=== PATIENT | female | born 2000 | race African-American/Black ===

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

== ENCOUNTER 2019-05-31 21:20 | Emergency (ER) | payer OTHER ==
[~2019-05-31] VITALS: Ht 162.6 cm; Wt 63.0 kg
[~2019-05-31 21:20] MED LIST changes: +ORPH-16 PO
[2019-05-31 22:20] LABS: BILIRUBIN,URINE NEG (NEG); CLARITY,URINE CLOUDY; COLOR,URINE YELLOW; GLUCOSE,URINE NEG (NEG)
[2019-05-31 22:21] LABS: AMORPHOUS SEDIMENT,UR PRESENT /HPF; BACTERIA,URINE FEW /HPF (0-FEW); NITRITE,URINE NEG (NEG); UROBILINOGEN,URINE 1 mg/dL (0.2 mg/dL)
[2019-05-31 22:22] LABS: SQUAMOUS EPITHELIAL CELL,UR MOD /LPF
[2019-05-31] MEDS ORDERED: SULF1TAB24 PO (22:39)
[2019-05-31] MEDS ORDERED: METR500T PO (22:39)
[2019-05-31 22:47] VITALS: BP 153/76
--- NOTE | 2019-05-31 22:54 | PHYS DOC ---
Past History Past Medical History: No Pertinent History Past Surgical History: No Surgical History Smoking: Less than 1pk/day Alcohol Use: None Drug Use: None Adult General Chief Complaint Chief Complaint: ABDOMINAL PAIN HPI HPI Patient is a 18-year-old female with 3 days of lower abdominal cramping and vaginal discharge some occasional dysuria no fever no vomiting she is not due for her. If she just wants to get checked out she does not want a labs I offered them she declined "I don't want to be her all night" Review of Systems Review of Systems Constitutional: Denies fever or chills [] Eyes: Denies change in visual acuity, redness, or eye pain [] Cardiovascular: No additional information not addressed in HPI [] GI: Musculoskeletal: Denies back pain or joint pain [] Integument: Denies rash or skin lesions [] Neurologic: Denies headache, focal weakness or sensory changes [] Endocrine: Denies polyuria or polydipsia [] All other systems were reviewed and found to be within normal limits, except as documented in this note. Current Medications Current Medications Current Medications Medications (Trade) Dose Ordered Sig/Woodrow Start Time Stop Time Status Last Admin Dose Admin Azithromycin (Zithromax) 1,000 mg 1X ONCE 05/31/19 23:00 05/31/19 23:01 05/31/19 22:44 1,000 MG Ceftriaxone Sodium (Rocephin Im) 250 mg 1X ONCE 05/31/19 23:00 05/31/19 23:01 05/31/19 22:44 250 MG Allergies Allergies Allergies Coded Allergies Type Severity Reaction Last Updated Verified morphine Allergy Intermediate 04/12/18 Yes Physical Exam Physical Exam Constitutional: Well developed, well nourished, no acute distress, non-toxic appearance. [] HENT: Normocephalic, atraumatic, bilateral external ears normal, oropharynx moist, no oral exudates, nose normal. [] Eyes: PERRLA, EOMI, conjunctiva normal, no discharge. [] Neck: Normal range of motion, no tenderness, supple, no stridor. [] Pulmonary: Normal respiratory effort no increased work of breathing no obvious chest wall trauma Abdomen: Bowel sounds normal, soft, no tenderness, no masses, no pulsatile masses. [] gu negative cervical motion or adnexal tenderness mild to moderate vaginal discharge with this somewhat excoriated cervix Skin: Warm, dry, no erythema, no rash. [] Back: No tenderness, no CVA tenderness. [] Extremities: No tenderness, no cyanosis, no clubbing, ROM intact, no edema. [] Neurologic: Alert and oriented X 3, normal motor function, normal sensory function, no focal deficits noted. [] Psychologic: Affect normal, judgement normal, mood normal. [] Current Patient Data Vital Signs Vital Signs Date Time Temp Pulse Resp B/P (MAP) Pulse Ox O2 Delivery O2 Flow Rate FiO2 05/31/19 21:25 98.4 91 14 100 Room Air Lab Results Laboratory Tests Test 05/31/19 21:27 05/31/19 21:39 Urine Collection Type Unknown Urine Color Yellow Urine Clarity Cloudy Urine pH 7.0 Urine Specific [place] 1.025 Urine Protein 100 mg/dl (NEG-TRACE) Urine Glucose (UA) Neg mg/dL (NEG) Urine Ketones (Stick) Neg mg/dL (NEG) Urine Blood Mod (NEG) Urine Nitrite Neg (NEG) Urine Bilirubin Neg (NEG) Urine Urobilinogen Dipstick 1 mg/dL (0.2 mg/dL) Urine Leukocyte Esterase Mod (NEG) Urine RBC 6-10 /HPF (0-2) Urine WBC 11-20 /HPF (0-4) Urine Squamous Epithelial Cells Mod /LPF Urine Amorphous Sediment Present /HPF Urine Bacteria Few /HPF (0-FEW) POC Urine HCG, Qualitative hcg negative (Negative) Microbiology 05/31/19 Wet Prep - Preliminary, Resulted EKG EKG [] Radiology/Procedures Radiology/Procedures [] Course & Med Decision Making Course & Med Decision Making Pertinent Labs and Imaging studies reviewed. (See chart for details) []Vaginitis treatment provided GC chlamydia pending she was treated presumptively in the emergency room prescription for UTI and BV treatment was provided return precautions discussed and she voiced understanding c clinical history and examination is really not consistent with pelvic inflammatory disease acute ovarian pathology or GI related pathology there is no right lower quadrant tenderness specifically Dragon Disclaimer Dragon Disclaimer This electronic medical record was generated, in whole or in part, using a voice recognition dictation system. Departure Departure: Impression: Primary Impression: Urinary tract infection Additional Impression: Bacterial vaginosis Disposition: 01 HOME, SELF-CARE Condition: STABLE Patient Instructions: Bacterial Vaginosis, [id number] Scripts Sulfamethoxazole/Trimethoprim (BACTRIM DS TABLET) 1 Each Tablet 1 TAB PO BID for uti for 7 Days, #14 TAB 0 Refills Prov: QUITA LOMBARDI MD 05/31/19 Metronidazole (FLAGYL) 500 Mg Tablet 1 TAB PO BID for bacteral vaginosis, #14 TAB Prov: QUITA LOMBARDI MD 05/31/19 Problem Qualifiers QUITA LOMBARDI MD May 31, 2019 22:54
[2019-05-31] MEDS ORDERED: cefTRIAXone IM 250 MG VIAL IM ONE (23:00)
[2019-05-31] MEDS ORDERED: AZITHROMYCIN 250 MG TABLET. PO ONE (23:00)
[2019-06-03 02:07] LABS: CHLAMYDIA PROBE Positive (Negative)
== END 2019-05-31 22:52 | disposition home or self-care (01) ==
LOC: ER 21:20
DX: N39.0 Urinary tract infection, site not specified (principal); N76.0 Acute vaginitis; B96.89 Other specified bacterial agents as the cause of diseases classified elsewhere; F17.200 Nicotine dependence, unspecified, uncomplicated; Z88.5 Allergy status to narcotic agent
CPT/HCPCS: 36415; 81001; 81025; 87086; 87491; 87591; 96372; 99284; J0456; J0696; Q0111

== ENCOUNTER 2019-07-13 10:44 | Emergency (ER) | payer OTHER ==
[~2019-07-13] VITALS: Ht 165.1 cm; Wt 61.7 kg
[~2019-07-13 10:44] MED LIST changes: +SULF1TAB24 PO
[2019-07-13 11:00] VITALS: BP 140/93
[2019-07-13] MEDS ORDERED: ONDANSETRON ODT 4 MG TAB.RAPDIS PO ONE (11:45)
[2019-07-13] MEDS ORDERED: ONDA4TAB7 PO (11:53)
--- NOTE | 2019-07-13 11:53 | PHYS DOC ---
Past History Past Medical History: No Pertinent History Past Surgical History: No Surgical History Smoking: Less than 1pk/day Alcohol Use: None Drug Use: None Adult General Chief Complaint Chief Complaint: NAUSEA/VOMITING/DIARRHEA HPI HPI Patient is a 19 year old F who presents with nausea/vomiting/diarrhea over the past 18 hours. She states that her 3-year-old daughter said similar symptoms of the past 3 days. She describes a generalized abdominal discomfort without notable focal pain. She has been able to drink fluids but states that she has very poor appetite. She denies blood in her stool or vomit. She has no other associated symptoms. She has no exasperating or relieving factors. Review of Systems Review of Systems Constitutional: Denies fever or chills [] Eyes: Denies change in visual acuity, redness, or eye pain [] HENT: Denies nasal congestion or sore throat [] Respiratory: Denies cough or shortness of breath [] Cardiovascular: No additional information not addressed in HPI [] GI: Negative except history of present illness : Denies dysuria or hematuria [] Musculoskeletal: Denies back pain or joint pain [] Integument: Denies rash or skin lesions [] Neurologic: Denies headache, focal weakness or sensory changes [] Endocrine: Denies polyuria or polydipsia [] All other systems were reviewed and found to be within normal limits, except as documented in this note. Family History Family History No pertinent family medical history was reported Current Medications Current Medications No current medications Current Medications Medications (Trade) Dose Ordered Sig/Woodrow Start Time Stop Time Status Last Admin Dose Admin Ondansetron HCl (Zofran Odt) 4 mg 1X ONCE 07/13/19 11:45 07/13/19 11:46 UNV Allergies Allergies Allergies Coded Allergies Type Severity Reaction Last Updated Verified No Known Drug Allergies 07/13/19 No Physical Exam Physical Exam Constitutional: Well developed, well nourished, no acute distress, non-toxic appearance. [] HENT: Normocephalic, atraumatic Eyes: EOMI, conjunctiva normal, no discharge. [] Neck: Normal range of motion, no tenderness, supple, no stridor. [] Cardiovascular:Heart rate regular rhythm, Lungs & Thorax: Bilateral breath sounds clear to auscultation [] Abdomen: Bowel sounds normal, soft, no masses, no pulsatile masses. [] No focal tenderness Skin: Warm, dry, no erythema, no rash. [] Back: No tenderness, no CVA tenderness. [] Extremities: No tenderness, no cyanosis, no clubbing, ROM intact, no edema. [] Neurologic: Alert and oriented X 3, normal motor function, normal sensory function, no focal deficits noted. [] Psychologic: Affect normal, judgement normal, mood normal. [] Current Patient Data Vital Signs Vital Signs Date Time Temp Pulse Resp B/P (MAP) Pulse Ox O2 Delivery O2 Flow Rate FiO2 07/13/19 11:00 97.4 98 20 100 EKG EKG [] Radiology/Procedures Radiology/Procedures [] Course & Med Decision Making Course & Med Decision Making Pertinent Labs and Imaging studies reviewed. (See chart for details) [] Dragon Disclaimer Dragon Disclaimer This electronic medical record was generated, in whole or in part, using a voice recognition dictation system. Departure Departure: Impression: Primary Impression: Gastroenteritis Disposition: HOME, SELF-CARE Condition: STABLE Referrals: JOSIANE ARRINGTON MS CNM (PCP) Patient Instructions: Viral Gastroenteritis Additional Instructions: Millie was seen in the emergency department for vomiting and diarrhea over the past 18 hours. No emergency medical condition was found on history or physical exam. She was given nausea medication was able tolerate fluids by mouth. She was encouraged to return to the emergency room if she develops new or worsening symptoms. She is advised follow up with her primary care doctor in the next 3-5 days to ensure continuing resolution of symptoms. Scripts Ondansetron Hcl (ZOFRAN) 4 Mg Tablet 1 TAB PO Q6HRS PRN for NAUSEA for 5 Days, #20 TAB Prov: HIALRIO BUTLER MD 07/13/19 HILARIO BUTLER MD Jul 13, 2019 11:53
== END 2019-07-13 12:10 | disposition home or self-care (01) ==
LOC: ER 10:44
DX: K52.9 Noninfective gastroenteritis and colitis, unspecified (principal)
CPT/HCPCS: 99283; Q0162

== ENCOUNTER 2019-11-08 14:52 | Emergency (ER) | payer OTHER ==
[~2019-11-08] VITALS: Ht 165.1 cm; Wt 68.4 kg
[~2019-11-08 14:52] MED LIST changes: +ONDA4TAB7 PO
[2019-11-08 16:29] LABS: BASO % 0 % (0-3); EOS # 0.1 x10^3/uL (0.0-0.7); EOS % 2 % (0-3); HEMATOCRIT 37.9 % (36.0-47.0); HEMOGLOBIN 12.6 g/dL (12.0-15.5); LYMPH # 1.6 x10^3/uL (1.0-4.8); LYMPH % 30 % (24-48); MEAN CORPUSCULAR HEMOGLOBIN 29 pg (25-35); MEAN CORPUSCULAR HGB CONC 33 g/dL (31-37); MEAN CORPUSCULAR VOLUME 86 fL (79-100); MONO # 0.4 x10^3/uL (0.0-1.1); MONO % 7 % (0-9); NEUT # 3.1 x10^3uL (1.8-7.7); NEUT % 60 % (31-73); PLATELET COUNT 199 x10^3/uL (140-400); RED BLOOD COUNT 4.42 x10^6/uL (3.50-5.40); RED CELL DISTRIBUTION WIDTH 13.1 % (11.5-14.5); WHITE BLOOD COUNT 5.2 x10^3/uL (4.0-11.0)
[2019-11-08 16:36] LABS: CALCIUM 9.1 mg/dL (8.5-10.1); CREATININE 0.9 mg/dL (0.6-1.0); GFR 96.6; POTASSIUM 3.6 mmol/L (3.5-5.1)
[2019-11-08 16:37] LABS: U PREG PATIENT NEGATIVE (NEG)
--- NOTE | 2019-11-08 16:42 | PHYS DOC ---
Past History Past Medical History: No Pertinent History Past Surgical History: No Surgical History Smoking: Less than 1pk/day Additional Smoking Information: 1ppd Alcohol Use: None Drug Use: None General Adult EDM: Chief Complaint: ABDOMINAL PAIN HPI: HPI: Patient is a 19-year-old female who presented to ER today for evaluation of lower abdominal pain started yesterday. Patient denies any fever, no nausea vomiting. Patient denies any vaginal discharge or bleeding. Patient denies any urinary symptom, no pain with urination, she says she is not . Patient described the pain as sharp aching in nature. Review of Systems: Review of Systems: Constitutional: Denies fever or chills Eyes: Denies change in visual acuity HENT: Denies nasal congestion or sore throat Respiratory: Denies cough or shortness of breath Cardiovascular: Denies chest pain or edema GI: Positive for lower abdominal pain : Denies dysuria Musculoskeletal: Denies back pain or joint pain Integument: Denies rash Neurologic: Denies headache, focal weakness or sensory changes Endocrine: Denies polyuria or polydipsia Lymphatic: Denies swollen glands Psychiatric: Denies depression or anxiety Heart Score: Risk Factors: Risk Factors: DM, Current or recent (<one month) smoker, HTN, HLP, family history of CAD, obesity. Risk Scores: Score 0 - 3: 2.5% MACE over next 6 weeks - Discharge Home Score 4 - 6: 20.3% MACE over next 6 weeks - Admit for Clinical Observation Score 7 - 10: 72.7% MACE over next 6 weeks - Early Invasive Strategies Allergies: Allergies: Allergies Coded Allergies Type Severity Reaction Last Updated Verified No Known Drug Allergies 07/13/19 No Physical Exam: PE: Constitutional: Well developed, well nourished, no acute distress, non-toxic appearance. [] HENT: Normocephalic, atraumatic, bilateral external ears normal, oropharynx moist, no oral exudates, nose normal. [] Eyes: PERRLA, EOMI, conjunctiva normal, no discharge. [] Neck: Normal range of motion, no tenderness, supple, no stridor. [] Cardiovascular:Heart rate regular rhythm, no murmur [] Lungs & Thorax: Bilateral breath sounds clear to auscultation [] Abdomen: Bowel sounds normal, soft, there is tenderness to palpation in the lower abdominal area , no rebound or guarding, no masses, no pulsatile masses. [] Skin: Warm, dry, no erythema, no rash. [] Back: No tenderness, no CVA tenderness. [] Extremities: No tenderness, no cyanosis, no clubbing, ROM intact, no edema. [] Neurologic: Alert and oriented X 3, normal motor function, normal sensory function, no focal deficits noted. [] Psychologic: Affect normal, judgement normal, mood normal. [] Current Patient Data: Labs: Laboratory Tests Test 11/08/19 15:08 11/08/19 16:03 Urine Test Negative (NEG) White Blood Count 5.2 x10^3/uL (4.0-11.0) Red Blood Count 4.42 x10^6/uL (3.50-5.40) Hemoglobin 12.6 g/dL (12.0-15.5) Hematocrit 37.9 % (36.0-47.0) Mean Corpuscular Volume 86 fL (79-100) Mean Corpuscular Hemoglobin 29 pg (25-35) Mean Corpuscular Hemoglobin Concent 33 g/dL (31-37) Red Cell Distribution Width 13.1 % (11.5-14.5) Platelet Count 199 x10^3/uL (140-400) Neutrophils (%) (Auto) 60 % (31-73) Lymphocytes (%) (Auto) 30 % (24-48) Monocytes (%) (Auto) 7 % (0-9) Eosinophils (%) (Auto) 2 % (0-3) Basophils (%) (Auto) 0 % (0-3) Neutrophils # (Auto) 3.1 x10^3uL (1.8-7.7) Lymphocytes # (Auto) 1.6 x10^3/uL (1.0-4.8) Monocytes # (Auto) 0.4 x10^3/uL (0.0-1.1) Eosinophils # (Auto) 0.1 x10^3/uL (0.0-0.7) Basophils # (Auto) 0.0 x10^3/uL (0.0-0.2) Vital Signs: Vital Signs Date Time Temp Pulse Resp B/P (MAP) Pulse Ox O2 Delivery O2 Flow Rate FiO2 11/08/19 16:10 16 128/74 (92) 100 Room Air 11/08/19 15:22 98.5 89 EKG: EKG: [] Radiology/Procedures: Radiology/Procedures: [][address] [address] IMAGING REPORT Signed PATIENT: ESTRELLA PADILLA ACCOUNT: [id number] : 2000 LOCATION: ER AGE: 19 SEX: F EXAM STATUS: REG ER ORD. PHYSICIAN: HILARIO BHAKTA DO REASON: lower abdominal pain since yesterday PROCEDURE: CT ABD PELV W/ IV CONTRST ONLY CT ABD PELV W/ IV CONTRST ONLY History: Lower abdominal pain. Technique: After the administration of intravenous contrast, CT imaging was performed of the abdomen and pelvis. Multiplanar images are reviewed. Exposure: One or more of the following individualized dose reduction techniques were utilized for this examination: 1. Automated exposure control 2. Adjustment of the mA and/or kV according to patient size 3. Use of iterative reconstruction technique. Comparison: None Findings: Lower chest: No consolidation or pleural effusion. Abdomen and pelvis: The liver, spleen, adrenal glands, and pancreas are unremarkable. Contracted gallbladder. No biliary ductal dilatation. Normal appearance the kidneys. No hydronephrosis. No renal calculi. Normal appendix. No evidence of bowel obstruction. Multiple small mesenteric lymph nodes, likely reactive. Small pelvic free fluid. Left ovarian follicles. Urinary bladder is unremarkable. Bones: No pathologic osseous lesions. Impression: 1. Small pelvic free fluid. 2. Otherwise, no acute abdominal or pelvic pathology. Electronically signed by: Kiko Dawn DO (11/08/2019 5:36 PM) [facility] DICTATED AND SIGNED BY: KIKO DAWN DO DATE: 11/08/19 1736 CC: JOSIANE ARRINGTON MS CNM; HILARIO BHAKTA DO ~ Course & Med Decision Making: Course & Med Decision Making Pertinent Labs and Imaging studies reviewed. (See chart for details) Patient is a 19-year-old female who presents to ER today for evaluation of abdominal pain, CT scan of her abdomen pelvis and lab work did not show any acute problem. Patient will be discharged to home, she will need to follow-up with her family doctor for further evaluation and treatment. Dragon Disclaimer: Dragon Disclaimer: This electronic medical record was generated, in whole or in part, using a voice recognition dictation system. Departure Departure: Impression: Primary Impression: Abdominal pain Disposition: 01 HOME/RESIDENCE PRIOR TO ADM Condition: STABLE Referrals: JOSIANE ARRINGTON MS CNM (PCP) follow up with your doctor for further evaluation and treatment Patient Instructions: Abdominal Pain Additional Instructions: Thank you for visiting our Emergency Department. We appreciate you trusting us with your care. If any additional problems come up don't hesitate to return to visit us. Please follow up with your primary care provider so they can plan additional care if needed and know about the problem that you had. If symptoms worsen come back to the Emergency Department. Any concerning symptoms that start such as chest pain, shortness of air, weakness or numbness on one side of the body, running high fevers or any other concerning symptoms return to the ER. HILARIO BHAKTA DO November 08, 2019 16:42
[2019-11-08 16:44] LABS: ALBUMIN 3.9 g/dL (3.4-5.0); ALBUMIN/GLOBULIN RATIO 1.1 (1.0-1.7); TOTAL BILIRUBIN 0.4 mg/dL (0.2-1.0); TOTAL PROTEIN 7.4 g/dL (6.4-8.2)
[2019-11-08] MEDS ORDERED: CONTRAST GIVEN MC PRN (16:45)
[2019-11-08 16:48] LABS: BILIRUBIN,URINE NEG (NEG); CLARITY,URINE CLOUDY; COLOR,URINE AMBER; GLUCOSE,URINE NEG (NEG)
[2019-11-08 16:49] LABS: BACTERIA,URINE MANY /HPF (0-FEW); NITRITE,URINE NEG (NEG); RBC,URINE OCC /HPF (0-2)
[2019-11-08 16:50] LABS: SQUAMOUS EPITHELIAL CELL,UR FEW /LPF
[2019-11-08] MEDS: IOHEXOL 300 MG/ML 75 ML VIAL. IV ONE (17:14)
[2019-11-08 17:32] VITALS: BP 144/84
--- NOTE | 2019-11-08 17:39 | RAD ---
CT ABD PELV W/ IV CONTRST ONLY History: Lower abdominal pain. Technique: After the administration of intravenous contrast, CT imaging was performed of the abdomen and pelvis. Multiplanar images are reviewed. Exposure: One or more of the following individualized dose reduction techniques were utilized for this examination: 1. Automated exposure control 2. Adjustment of the mA and/or kV according to patient size 3. Use of iterative reconstruction technique. Comparison: None Findings: Lower chest: No consolidation or pleural effusion. Abdomen and pelvis: The liver, spleen, adrenal glands, and pancreas are unremarkable. Contracted gallbladder. No biliary ductal dilatation. Normal appearance the kidneys. No hydronephrosis. No renal calculi. Normal appendix. No evidence of bowel obstruction. Multiple small mesenteric lymph nodes, likely reactive. Small pelvic free fluid. Left ovarian follicles. Urinary bladder is unremarkable. Bones: No pathologic osseous lesions. Impression: 1. Small pelvic free fluid. 2. Otherwise, no acute abdominal or pelvic pathology. Electronically signed by: Kiko Dawn DO (11/08/2019 5:36 PM) [facility]
[2019-11-08] MEDS: KETOROLAC 30 MG/ML VIAL. IVP ONE (18:00)
== END 2019-11-08 18:22 | disposition home or self-care (01) ==
LOC: ER 14:52
DX: R10.30 Lower abdominal pain, unspecified (principal); F17.200 Nicotine dependence, unspecified, uncomplicated
CPT/HCPCS: 36415; 74177; 80053; 81001; 81025; 83690; 85025; 87086; 96374; 99285; J1885; Q9967

== ENCOUNTER 2020-02-29 20:08 | Emergency (ER) | payer OTHER ==
[~2020-02-29] VITALS: Ht 165.1 cm; Wt 70.3 kg
--- NOTE | 2020-02-29 20:33 | PHYS DOC ---
Past History Past Medical History: No Pertinent History Past Surgical History: No Surgical History Smoking: Less than 1pk/day Alcohol Use: None Drug Use: None Adult General Chief Complaint Chief Complaint: ABDOMINAL PAIN HPI HPI Patient is a 19-year-old female who presents for nausea and generalized abdominal pain. This is been going on for last month. She suspects she is as she has had home test performed that were positive, first day of last menstrual period was January 21 but was not typical for her, she is unable to call last menstrual period prior to this. She is not been seen in outpatient setting for initial examination. She is concerned and wanting to be evaluated at our ER because she has not been able to be seen in outpatient setting. She is nauseous but denies any vomit or diarrhea, vaginal discharge or bleeding. Abdominal pain is dull in nature and mostly in suprapubic area without any other concerning signs or symptoms such as fever. She has had 2 pregnancies in the past and this feels similar to typical pain and nausea. She has not taken anything to relieve her symptoms. Review of Systems Review of Systems Fourteen body systems of review of systems have been reviewed. See HPI for pertinent positives and negative responses, other mcwilliams all other systems are negative, non-pertinent or non-contributory Allergies Allergies Allergies Coded Allergies Type Severity Reaction Last Updated Verified No Known Drug Allergies 07/13/19 No Physical Exam Physical Exam Constitutional: Well developed, well nourished, no acute distress, non-toxic appearance. HENT: Normocephalic, atraumatic, bilateral external ears normal, oropharynx moist, no oral exudates, nose normal. Eyes: PERRLA, EOMI, conjunctiva normal, no discharge. Neck: Normal range of motion, no tenderness, supple, no stridor. Cardiovascular: Heart rate regular, sinus rhythm, no murmurs rubs or gallops Lungs & Thorax: Bilateral breath sounds clear to auscultation Abdomen: Bowel sounds normal, soft, no tenderness, no rebound, no guarding no masses, no pulsatile masses. Nonsurgical abdomen, no peritoneal signs Skin: Warm, dry, no erythema, no rash. Back: No tenderness, no CVA tenderness. Extremities: No tenderness, no cyanosis, no clubbing, ROM intact, no edema. Neurologic: Alert and oriented X 3, grossly normal motor & sensory function, no focal deficits noted. Psychologic: Affect normal, judgement normal, mood normal. Current Patient Data Lab Results Laboratory Tests Test 02/29/20 20:38 Bedside Urine HCG, Qualitative hcg positive (Negative) EKG EKG [] Radiology/Procedures Radiology/Procedures [] Course & Med Decision Making Course & Med Decision Making Well-appearing ambulatory patient admitting she is here for initial visit ABCs non-concerning History and physical examination grossly benign, subsequent diagnostic studies ordered and confirmed patient is I discussed there is limited role in further diagnostic work-up or studies here in ER setting, there is no utility in further laboratory analysis or ultrasound for well-appearing patient wanting initial visit I discussed need to start taking vitamins daily, I stressed need for tobacco cessation, I also will prescribe vitamin B6 for nausea Patient saw local [facility] in [place] for her 2 prior pregnancies, she has their contact information and reports she will call them first thing tomorrow morning to establish and schedule initial visit Strict return precautions were discussed with good understanding by patient, all questions and concerns addressed prior to ER departure in stable condition Seth Disclaimer Seth Disclaimer This electronic medical record was generated, in whole or in part, using a voice recognition dictation system. Departure Departure: Impression: Primary Impression: related nausea, antepartum Disposition: HOME/RESIDENCE PRIOR TO ADM Condition: STABLE Referrals: JOSIANE ARRINGTON MS CNM (PCP) Patient Instructions: ABCs of , - First Trimester Scripts Pnv No.122/Iron/Folic Acid ( Multi Tablet) 1 Each Tablet 1 TAB PO DAILY for for 30 Days, #30 TAB 0 Refills Prov: COLBY NOEL DO 02/29/20 Pyridoxine Hcl (PYRIDOXINE HCL ) 25 Mg Tablet 1 TAB PO DAILY for NAUSEA for 30 Days, #30 TAB 0 Refills Prov: COLBY NOEL DO 02/29/20 Justification of Admission: Justification of Admission: Justification of Admission Dx: N/A COLBY NOEL DO Feb 29, 2020 20:33
[2020-02-29] MEDS ORDERED: PYRI50TA6 PO (20:52)
[2020-02-29] MEDS ORDERED: PNV1TABL78 PO (20:53)
[2020-02-29 20:55] VITALS: BP 128/64
[2020-02-29] MEDS: ONDANSETRON ODT 4 MG TAB.RAPDIS PO ONE (21:07)
== END 2020-02-29 21:10 | disposition home or self-care (01) ==
LOC: ER 20:08
DX: O26.891 Other specified pregnancy related conditions, first trimester (principal); R11.0 Nausea; R10.84 Generalized abdominal pain; O99.331 Smoking (tobacco) complicating pregnancy, first trimester; Z3A.01 Less than 8 weeks gestation of pregnancy
CPT/HCPCS: 81025; 99283; Q0162

== ENCOUNTER 2020-04-10 17:38 | Emergency (ER) | payer OTHER ==
[~2020-04-10] VITALS: Ht 165.1 cm; Wt 72.9 kg
[2020-04-10 17:38] VITALS: BP 124/71
[~2020-04-10 17:38] MED LIST changes: +PNV1TABL78 PO; +PYRI50TA6 PO
--- NOTE | 2020-04-10 18:29 | PHYS DOC ---
Past History Past Medical History: No Pertinent History Past Surgical History: No Surgical History Smoking: Less than 1pk/day Alcohol Use: None Drug Use: None Adult General Chief Complaint Chief Complaint: ABDOMINAL PAIN HPI HPI Patient is a 19-year-old female who presents with lower abdominal discomfort. Patient reports that she is proximate 12 weeks at this time, has seen HEAT TREATMENT TECHNICIAN, has another follow-up coming up soon. Reports she had an ultrasound proximally 4 weeks ago, with baby will position. Denies any vaginal bleeding, vaginal discharge. States she is just continues to have this abdominal cramping, with some increased nausea. Denies fever, denies vomiting. States s he has a prescription for nausea medications from her HEAT TREATMENT TECHNICIAN, however she does not like to take them as they are "horse pills". States discomfort started this morning. Denies any change in urination, denies burning urination or urinary frequency. Patient is G3, P2 Review of Systems Review of Systems Constitutional: Denies fever or chills [] Eyes: Denies change in visual acuity, redness, or eye pain [] HENT: Denies nasal congestion or sore throat [] Respiratory: Denies cough or shortness of breath [] Cardiovascular: No additional information not addressed in HPI [] GI: Denies abdominal pain, vomiting, bloody stools or diarrhea [] does report some nausea, however does report she has had nausea during most of her pregnancies. Reports low abdominal cramping : Denies dysuria or hematuria [] Musculoskeletal: Denies back pain or joint pain [] Integument: Denies rash or skin lesions [] Neurologic: Denies headache, focal weakness or sensory changes [] Endocrine: Denies polyuria or polydipsia [] All other systems were reviewed and found to be within normal limits, except as documented in this note. Allergies Allergies Allergies Coded Allergies Type Severity Reaction Last Updated Verified No Known Drug Allergies 02/29/20 No Physical Exam Physical Exam Constitutional: Well developed, well nourished, no acute distress, non-toxic appearance. [] Cardiovascular:Heart rate regular rhythm, no murmur [] Lungs & Thorax: Bilateral breath sounds clear to auscultation [] Abdomen: Bowel sounds normal, soft, no tenderness, no masses, no pulsatile masses. [] Skin: Warm, dry, no erythema, no rash. [] Back: No tenderness, no CVA tenderness. [] Extremities: No tenderness, no cyanosis, no clubbing, ROM intact, no edema. [] Neurologic: Alert and oriented X 3, normal motor function, normal sensory function, no focal deficits noted. [] Psychologic: Affect normal, judgement normal, mood normal. [] EKG EKG [] Radiology/Procedures Radiology/Procedures [] Heart Score Risk Factors: Risk Factors: DM, Current or recent (<one month) smoker, HTN, HLP, family history of CAD, obesity. Risk Scores: Risk Factors: DM, Current or recent (<one month) smoker, HTN, HLP, family history of CAD, obesity. Course & Med Decision Making Course & Med Decision Making Pertinent Labs and Imaging studies reviewed. (See chart for details) [] Reviewed urinalysis with patient, states she is feeling better and has less nausea, Zofran. States that she would like prescription for this as it does work for her. Advised patient we can provide a brief course of this. Discussed urinalysis with patient, without abnormal findings. No vaginal bleeding, with recent ultrasound without displacement of fetus, believe safe for discharge. Patient in agreement this plan, will follow up with her HEAT TREATMENT TECHNICIAN. Dragon Disclaimer Dragon Disclaimer This electronic medical record was generated, in whole or in part, using a voice recognition dictation system. Departure Departure: Impression: Primary Impression: Abdominal pain affecting Disposition: 01 DC HOME SELF CARE/HOMELESS Condition: STABLE Referrals: JOSIANE ARRINGTON MS CNM (PCP) Patient Instructions: Abdominal Pain During Additional Instructions: As we discussed, continue to rest. Do not do anything extremely active or lifting a heavy things if possible. You may take Zofran as needed for nausea. Follow-up with your HEAT TREATMENT TECHNICIAN in the next week or 2 to reevaluate your symptoms today Scripts Ondansetron (ONDANSETRON ODT) 4 Mg Tab.rapdis 1 TAB PO PRN Q6-8HRS for nausea, #16 TAB Prov: MARKUS VERDUZCO APRN 04/10/20 MARKUS VERDUZCO APRN Apr 10, 2020 18:29
[2020-04-10 19:08] LABS: BILIRUBIN,URINE NEG (NEG); CLARITY,URINE HAZY; COLOR,URINE YELLOW; GLUCOSE,URINE NEG (NEG)
[2020-04-10 19:09] LABS: BACTERIA,URINE FEW /HPF (0-FEW); NITRITE,URINE NEG (NEG); RBC,URINE RARE /HPF (0-2); SQUAMOUS EPITHELIAL CELL,UR MOD /LPF; UROBILINOGEN,URINE 0.2 mg/dL (0.2 mg/dL)
[2020-04-10] MEDS ORDERED: ONDANSETRON ODT 4 MG TAB.RAPDIS ONE (19:31)
[2020-04-10] MEDS ORDERED: ONDANSETRON ODT 4 MG TAB.RAPDIS PO ONE ×2 (19:45)
[2020-04-10] MEDS ORDERED: ONDA4TAB12 PO (19:58)
== END 2020-04-10 20:10 | disposition home or self-care (01) ==
LOC: ER 17:38
DX: O26.891 Other specified pregnancy related conditions, first trimester (principal); R10.30 Lower abdominal pain, unspecified; R11.0 Nausea; O99.331 Smoking (tobacco) complicating pregnancy, first trimester; Z3A.12 12 weeks gestation of pregnancy
CPT/HCPCS: 81001; 99283; Q0162

== ENCOUNTER 2020-04-14 22:31 | Emergency (ER) | payer OTHER ==
[~2020-04-14] VITALS: Ht 165.1 cm; Wt 72.8 kg
[~2020-04-14 22:31] MED LIST changes: +ONDA4TAB12 PO
--- NOTE | 2020-04-14 22:55 | PHYS DOC ---
Past History Past Medical History: No Pertinent History Past Surgical History: No Surgical History Smoking: Less than 1pk/day Alcohol Use: None Drug Use: None General Adult EDM: Chief Complaint: ABDOMINAL PAIN IN HPI: HPI: 19-year-old female, currently approximately 12w5d , presents the ED with complaints of suprapubic sharp nonradiating discomfort with increased urinary frequency and urgency. Patient states she has had these symptoms intermittently for her entire . Was seen by her OUTREACH TEAM MEMBER yesterday and had an unremarkable urinalysis and transabdominal ultrasound. Has never been told she has ovarian cysts. Was seen in the ED 4 days ago for abdominal pain and was prescribed Zofran at her request. EMR reviewed-no US confirming IUP. Last positive test 02/2020. Patient with no history of ectopic pregnancies. Has never heard of round ligament pain. Denies any blunt trauma to her abdomen/mvcs. No associated abnormal vaginal discharge, vaginal bleeding, itching or vaginal odor, hematuria, fever, flank pain, nausea or vomiting. Reports she tested negative for STIs 4 weeks ago and denies any new sexual partners. No psh. Review of Systems: Review of Systems: Constitutional: Denies fever or chills Eyes: Denies change in visual acuity HENT: Denies nasal congestion or sore throat Respiratory: Denies cough or shortness of breath Cardiovascular: Denies chest pain or edema GI: Denies nausea, vomiting, bloody stools or diarrhea : Denies hematuria or flank pain or vaginal bleeding Musculoskeletal: Denies back pain or joint pain Integument: Denies rash Neurologic: Denies headache, focal weakness or sensory changes Endocrine: Denies polydipsia or diaphoresis Lymphatic: Denies swollen glands Psychiatric: Denies depression or anxiety Allergies: Allergies: Allergies Coded Allergies Type Severity Reaction Last Updated Verified No Known Drug Allergies 04/10/20 No Physical Exam: PE: Constitutional: Well developed, well nourished, no acute distress-comfortable/ texting on exam, non-toxic appearance. [] HENT: Normocephalic, atraumatic, Eyes: EOMI, conjunctiva normal, no discharge. [] Neck: Normal range of motion, supple, Cardiovascular:S1/2 present Lungs & Thorax: Speaking in full sentences, bilateral equal chest rise Abdomen: Bowel sounds normal, soft, no tenderness, no masses, no pulsatile masses, +suprapubic discomfort, no pain at mcburneys, no ruq pain Skin: Warm, dry, no erythema, no rash. [] Back: No tenderness, no CVA tenderness. [] Extremities: No tenderness, no cyanosis, no clubbing, ROM intact, no edema. [] Neurologic: Alert and oriented X 3, normal motor function, normal sensory function, no focal deficits noted. [] Psychologic: Affect normal, judgement normal, mood normal. [] Pelvic: pt declined given recent ob evaluation and "I do not have stis,"-no recent intercourse since last tested, pt understands risk of missing PID/ovarian torsion/heterotopic EKG: EKG: [] Radiology/Procedures: Radiology/Procedures: Bedside POCUS transabdominal ultrasound obtained in 2 views confirming intrauterine , no free fluid, + movement-unable to obtain FHR via us, rn fhr doppler of 150s Heart Score: Risk Factors: Risk Factors: DM, Current or recent (<one month) smoker, HTN, HLP, family history of CAD, obesity. Risk Scores: Score 0 - 3: 2.5% MACE over next 6 weeks - Discharge Home Score 4 - 6: 20.3% MACE over next 6 weeks - Admit for Clinical Observation Score 7 - 10: 72.7% MACE over next 6 weeks - Early Invasive Strategies Course & Med Decision Making: Course & Med Decision Making Pertinent Labs and Imaging studies reviewed. (See chart for details) Concern for suprapubic discomfort increased urinary frequency and urgency in , will treat for UTI. Pt also with chronic, intermittent lower abdominal pain -could represent round ligament pain. Pt refusing any formal TVUS because "that will take too long, I had an ultrasound yesterday." Pt aware that life threatening diseases such as ovarian torsion, heterotopic and pid have not been excluded. That being said, pt very calm and in no distress, has no vaginal bleeding and bedside pocus with no free fluid, normal appearing IUP. Strict ed return precautions given for vaginal bleeding, severe pain or back pain, fever, nausea or vomiting or flulike symptoms. Will treat for complicated UTI. Encouraged urgent outpatient follow-up with PMD and OUTREACH TEAM MEMBER. Life-threatening processes were considered but are low suspicion at this time, given history and physical exam. Pt was educated on all prescription medications and adverse effects. All patient's questions were answered and pt was stable at time of discharge. Life/limb-threatening differential includes but is not limited to, aortic dissection, aortic aneurysm, acute coronary syndrome, surgical abdomen (appendicitis, cholecystitis, ischemic bowel, strangulated hernia, etc), bowel obstruction or volvulus, bladder outlet obstruction, gastrointestinal bleeding, inflammatory bowel disease, peptic ulcer disease, sepsis, diverticular disease, ureterolithiasis, nephrolithiasis, ovarian or testicular torsion, ectopic , vaginal hemorrhage, or genitourinary infection. I spoken with the patient and her caregivers. I explained the patient's condition, diagnoses and treatment plan based on the information available to me at this time. I have answered the patient and her caregiver's questions and addressed any concerns. The patient and her caregivers have a good understanding of patient's diagnosis, condition and treatment plan as can be expected at this point. Vital signs have been stable. Patient's condition is stable and appropriate for discharge from the emergency department. Patient will pursue further outpatient evaluation with primary care physician or other designated or consulting physician as outlined in the discharge instructions. The patient and/or caregivers are agreeable to this plan of care and follow-up instructions have been explained in detail. The patient and/or caregivers have received these instructions in written form and have expressed an understanding of the discharge instructions. The patient and/or caregivers are aware that any significant change of condition or worsening of symptoms should prompt immediate return to this or the closest emergency department or call to 911. Seth Disclaimer: Seth Disclaimer: This electronic medical record was generated, in whole or in part, using a voice recognition dictation system. Departure Departure: Impression: Primary Impression: UTI (urinary tract infection) Additional Impression: Abdominal pain during in first trimester Disposition: 01 DC HOME SELF CARE/HOMELESS Condition: STABLE Referrals: PCP,NO (PCP) FOLLOW UP WITH PEDIATRICS: Julissa George MD, PA [address], [address] [place] [address] OR [facility] [address], [address] [place] [address] [phone] Patient Instructions: Abdominal Pain During , - Urinary Tract Infection Additional Instructions: FOLLOW UP WITH OBGYN: [facility] OUTREACH TEAM MEMBER [address], [address] [place] [address] EMERGENCY DEPARTMENT GENERAL DISCHARGE INSTRUCTIONS Thank you for coming to [facility] (ED) today and trusting us with you care. We trust that you had a positivie experience in our Emergency Department. If you wish to speak to the department management, you may call the director at [phone]. YOUR FOLLOW UP INSTRUCTIONS ARE FOLLOWS: 1. Do you have a private Doctor? If you do not have a private doctor, please ask for a resource list of physicians or clinics that may be able to assist you with follow up care. 2. The Emergency Physician has interpreted your x-rays. The X-Ray specialist will also review them. If there is a change in the findings, you will be notified in 48 hours when at all possible. 3. A lab test or culture has been done, your results will be reviewed and you will be notified if you need a change in treatment. ADDITIONAL INSTRUCTIONS AND INFORMATION: 1. Your care today has been supervised by a physician who is specially trained in emergency care. Many problems require more than one evaluation for a complete diagnosis and treatment. We recommend that you schedule your follow up appointment as recommended to ensure complete treatment of you illness or injury. If you are unable to obtain follow up care and continue to have a problem, or if your condition worsens, we recommend that you return to the ED. 2. We are not able to safely determine your condition over the phone nor are we able to give sound medical advice over the phone. For these safety reasons, if you call for medical advice we will ask you to come to the ED for further evaluation. 3. If you have any questions regarding these discharge instructions please call the ED at [phone]. SAFETY INFORMATION: In the interest of safety, wellness, and injury prevention; we encourage you to wear your sealbelt, if you smoke; quite smoking, and we encourage family to use a protective helmet for bicycling and other sporting events that present an increased risk for head injury. IF YOUR SYMPTOMS WORSEN OR NEW SYMPTOMS DEVELOP, OR YOU HAVE CONCERNS ABOUT YOUR CONDITION; OR IF YOUR CONDITION WORSENS WHILE YOU ARE WAITING FOR YOUR FOLLOW UP APPOINTMENT; EITHER CONTACT YOUR PRIMARY CARE DOCTOR, THE PHYSICIAN WHOSE NAME AND NUMBER YOU WERE GIVEN, OR RETURN TO THE ED IMMEDIATELY. Scripts Cefpodoxime Proxetil (CEFPODOXIME PROXETIL) 200 Mg Tablet 1 TAB PO BID for uti for 10 Days, #20 TAB Prov: GREGOR ERICKSON DO 04/14/20 Phenazopyridine Hcl (PHENAZOPYRIDINE HCL) 200 Mg Tablet 1 TAB PO TID for urinary discomfort for 2 Days, #6 TAB 0 Refills after food Prov: GREGOR ERICKSON DO 04/14/20 GREGOR ERICKSON DO Apr 14, 2020 22:55
[2020-04-14 23:25] LABS: BACTERIA,URINE FEW /HPF (0-FEW); BILIRUBIN,URINE NEG (NEG); CLARITY,URINE CLEAR; COLOR,URINE YELLOW; GLUCOSE,URINE NEG (NEG); NITRITE,URINE NEG (NEG); RBC,URINE 0 /HPF (0-2); SQUAMOUS EPITHELIAL CELL,UR MOD /LPF; UROBILINOGEN,URINE 0.2 mg/dL (0.2 mg/dL)
[2020-04-14] MEDS ORDERED: CEFP200T PO (23:34)
[2020-04-14] MEDS ORDERED: PHEN-444 PO (23:34)
[2020-04-14] MEDS ORDERED: PHENAZOPYRIDINE 200 MG TABLET. ONE (23:44)
[2020-04-14 23:55] VITALS: BP 121/71
[2020-04-15] MEDS ORDERED: PHENAZOPYRIDINE 200 MG TABLET. PO ONE (00:30)
== END 2020-04-14 23:58 | disposition home or self-care (01) ==
LOC: ER 22:31
DX: O23.41 Unspecified infection of urinary tract in pregnancy, first trimester (principal); R10.30 Lower abdominal pain, unspecified; R35.0 Frequency of micturition; Z3A.12 12 weeks gestation of pregnancy; Z87.891 Personal history of nicotine dependence
CPT/HCPCS: 81001; 87086; 99283

== ENCOUNTER 2020-06-01 10:58 | Emergency (ER) | payer OTHER ==
[~2020-06-01] VITALS: Ht 165.1 cm; Wt 72.8 kg
[~2020-06-01 10:58] MED LIST changes: +CEFP200T PO; +PHEN-444 PO
[2020-06-01 11:04] VITALS: BP 126/80
[2020-06-01 12:17] LABS: BILIRUBIN,URINE NEG (NEG); CLARITY,URINE CLOUDY; COLOR,URINE YELLOW; GLUCOSE,URINE NEG (NEG); NITRITE,URINE NEG (NEG); UROBILINOGEN,URINE 0.2 mg/dL (0.2 mg/dL)
[2020-06-01 12:18] LABS: BACTERIA,URINE MOD /HPF (0-FEW); SQUAMOUS EPITHELIAL CELL,UR MOD /LPF
[2020-06-01] MEDS ORDERED: NITR100C62 PO (12:34)
--- NOTE | 2020-06-01 12:34 | PHYS DOC ---
Past History Past Medical History: Anxiety Past Surgical History: No Surgical History Smoking: Less than 1pk/day Alcohol Use: None Drug Use: None Adult General Chief Complaint Chief Complaint: ABDOMINAL PAIN HPI HPI Patient is a 19-year-old female at 19 weeks gestation who presents to the emergency room after having some sharp lower abdominal pain. Patient has had pain like this previously though this feels somewhat different. She has had some dysuria. She denies any vaginal bleeding or discharge. She has recently been tested for STDs and was negative. Baby is still moving normally. She has not had any nausea, vomiting, diarrhea. She has not had any kind of fevers. She is up-to-date with all of her visits. Review of Systems Review of Systems Complete ROS is negative unless otherwise documented in HPI Allergies Allergies Allergies Coded Allergies Type Severity Reaction Last Updated Verified No Known Drug Allergies 04/10/20 No Physical Exam Physical Exam General: Awake, alert, NAD. Well Nourished, well hydrated. Cooperative HEENT: Atraumatic, EOMI, PERRL, airway patent, moist oral mucosa Neck: Supple, trachea midline Respiratory: CTA bilaterally, normal effort, no wheezing/crackles CV: RRR, no murmur, cap refill <2 GI: Soft, gravid abdomen, nontender MSK: No obvious deformities Skin: Warm, dry, intact Neuro: A&O x3, speech NL, sensory and motor grossly intact, no focal deficits Psych: Normal affect, normal mood, not suicidal or homicidal Current Patient Data Vital Signs Vital Signs Date Time Temp Pulse Resp B/P (MAP) Pulse Ox O2 Delivery O2 Flow Rate FiO2 06/01/20 11:04 98.3 92 16 126/80 (95) 100 Room Air Lab Results Laboratory Tests Test 06/01/20 11:30 Urine Collection Type Unknown Urine Color Yellow Urine Clarity Cloudy Urine pH 7.0 Urine Specific Lamont 1.025 Urine Protein Trace (NEG-TRACE) Urine Glucose (UA) Neg mg/dL (NEG) Urine Ketones (Stick) Neg mg/dL (NEG) Urine Blood Neg (NEG) Urine Nitrite Neg (NEG) Urine Bilirubin Neg (NEG) Urine Urobilinogen Dipstick 0.2 mg/dL (0.2 mg/dL) Urine Leukocyte Esterase Mod (NEG) Urine RBC 1-2 /HPF (0-2) Urine WBC 5-10 /HPF (0-4) Urine Squamous Epithelial Cells Mod /LPF Urine Bacteria Mod /HPF (0-FEW) Urine Mucus Slight /LPF EKG EKG [] Radiology/Procedures Radiology/Procedures [] Heart Score Risk Factors: Risk Factors: DM, Current or recent (<one month) smoker, HTN, HLP, family history of CAD, obesity. Risk Scores: Risk Factors: DM, Current or recent (<one month) smoker, HTN, HLP, family history of CAD, obesity. Course & Med Decision Making Course & Med Decision Making Pertinent Labs and Imaging studies reviewed. (See chart for details) Patient is a 19-year-old female who presents to the emergency room with lower abdominal pain. Fetus was found on Doppler and has a normal heart rate. She not have any vaginal bleeding or discharge. Patient overall is well-appearing. At this time she does not need a full work-up. She has had abdominal pain intermittently with this . We discussed using Tylenol for pain at home. We discussed staying very hydrated. We discussed coming back to the emergency room if she develops any bleeding or discharge. She will be treated for UTI. Patient's test results and vitals while in the ED were fully reviewed and discussed with the patient. Patient is stable and at this time does not need admission to the hospital. We have discussed strict return precautions and the importance of following up with their Primary Care Physician. Patient stated understanding and was given an opportunity to ask any questions. Patient is in agreement with plan. Dragon Disclaimer Dragon Disclaimer This electronic medical record was generated, in whole or in part, using a voice recognition dictation system. Departure Departure: Impression: Primary Impression: UTI (urinary tract infection) Additional Impression: Abdominal pain during in first trimester Disposition: 01 DC HOME SELF CARE/HOMELESS Condition: STABLE Referrals: PCP,NO (PCP) Patient Instructions: Abdominal Pain During Scripts Nitrofurantoin Monohyd/M-Cryst (MACROBID 100 MG CAPSULE) 100 Mg Capsule 1 CAP PO BID for UTI for 5 Days, #10 CAP 0 Refills Prov: YASHIRA ALCOCER MD 06/01/20 Problem Qualifiers YASHIRA ALCOCER MD Jun 01, 2020 12:34
== END 2020-06-01 12:46 | disposition home or self-care (01) ==
LOC: ER 10:58
DX: O23.42 Unspecified infection of urinary tract in pregnancy, second trimester (principal); O99.332 Smoking (tobacco) complicating pregnancy, second trimester; Z3A.19 19 weeks gestation of pregnancy
CPT/HCPCS: 81001; 87086; 99283

== ENCOUNTER 2020-08-12 19:59 | Emergency (ER) | payer OTHER ==
[~2020-08-12 19:59] MED LIST changes: +NITR100C62 PO
[2020-08-12 20:15] VITALS: BP 127/72
== END 2020-08-12 20:35 | disposition left against medical advice (07) ==
LOC: ER 19:59
DX: O26.891 Other specified pregnancy related conditions, first trimester (principal); R10.9 Unspecified abdominal pain; Z53.21 Procedure and treatment not carried out due to patient leaving prior to being seen by health care provider

== ENCOUNTER 2020-09-17 19:04 | Emergency (ER) | payer OTHER ==
[~2020-09-17] VITALS: Ht 165.1 cm; Wt 78.8 kg
[2020-09-17 19:15] VITALS: BP 149/83
--- NOTE | 2020-09-17 19:44 | PHYS DOC ---
Past History Past Medical History: Anxiety Past Surgical History: No Surgical History Smoking: Less than 1pk/day Alcohol Use: None Drug Use: None Adult General Chief Complaint Chief Complaint: PAIN ON URINATION [facility] HPI Patient is a 20-year-old female, at 35 weeks who presents with a chief complaint of dysuria and vaginal itching for about 3 days. States she saw her primary care physician 2 days ago and was tested for STIs, bacterial vaginosis, and yeast. States that she has not got her results back and probably will not until Friday or Friday. States that she came in this evening because she wanted a quicker answer and she is having some itching. States she is not worried about sexually transmitted infections as she has been tested twice already, during her that was negative and was just tested again on Friday and does not need to be tested again. States she has a small amount of white discharge. Denies any vaginal bleeding or gushes of fluid. States she is still feeling baby move. Denies any Covid/flu/cold symptoms, chest pain, shortn ess of breath, abdominal pain, nausea, vomiting, diarrhea. States she is otherwise eating and drinking normally. States that she came in today to be tested to be sure she does not have a urinary tract infection or a yeast infection. Review of Systems Review of Systems Constitutional: Denies fever or chills [] Eyes: Denies change in visual acuity, redness, or eye pain [] HENT: Denies nasal congestion or sore throat [] Respiratory: Denies cough or shortness of breath [] Cardiovascular: No additional information not addressed in HPI [] GI: Denies abdominal pain, nausea, vomiting, bloody stools or diarrhea [] : Denies dysuria or hematuria [] Musculoskeletal: Denies back pain or joint pain [] Integument: Denies rash or skin lesions [] Neurologic: Denies headache, focal weakness or sensory changes [] Endocrine: Denies polyuria or polydipsia [] All other systems were reviewed and found to be within normal limits, except as documented in this note. Allergies Allergies Allergies Coded Allergies Type Severity Reaction Last Updated Verified No Known Drug Allergies 09/17/20 No Physical Exam Physical Exam Constitutional: Well developed, well nourished, no acute distress, non-toxic appearance. [] HENT: oropharynx moist, no oral exudates, Eyes: PERRLA, EOMI, conjunctiva normal, no discharge. [] Cardiovascular:Heart rate regular rhythm, heart tones of 165 Lungs & Thorax: Bilateral breath sounds clear to auscultation [] Abdomen: Gravid, no tenderness, : Genitals with no lesions, erythema, tenderness. Patient had a scant amount of white vaginal discharge with no erythema or tenderness. Skin: Warm, dry, no erythema, no rash. [] Back: no CVA tenderness. [] Neurologic: Alert and oriented X 3, normal motor function, normal sensory function, no focal deficits noted. [] Psychologic: Affect normal, judgement normal, mood normal. [] Current Patient Data Vital Signs Vital Signs Date Time Temp Pulse Resp B/P (MAP) Pulse Ox O2 Delivery O2 Flow Rate FiO2 09/17/20 19:15 98.6 93 18 149/83 (105) 99 Room Air EKG EKG [] Radiology/Procedures Radiology/Procedures [] Heart Score C/O Chest Pain: No Risk Factors: Risk Factors: DM, Current or recent (<one month) smoker, HTN, HLP, family history of CAD, obesity. Risk Scores: Risk Factors: DM, Current or recent (<one month) smoker, HTN, HLP, family history of CAD, obesity. Course & Med Decision Making Course & Med Decision Making Patient is a 20-year-old female who presents with concerns of urinary tract infection versus yeast infection Vital signs not concerning. Physical exam noted above. No vaginal bleeding, gushes of fluid, patient was feeling baby move and heart rate of baby was 165. Patient just had a checkup 2 days ago, and all was well with , and was tested for STIs, BV and yeast infection. Patient states that she will not get her results back until next week sometime wants to know now. Vaginitis panel pending and will result for 24 to 48 hours. Urinalysis with bacteriuria. Started Keflex treatment in the ED. Discussed treatment options for yeast infection versus bacterial vaginosis and prophylactic treatment versus waiting. Patient stated given the test she just had Friday at her primary care in the test she had a day she would wait to take any other medications except for the antibiotics for her bacteriuria until she gets results from either her PCP or her ED visit. Advised to call PCP/MANAGER INDUSTRIAL first thing in the morning to update on ED visit and labs obtained. Gave strict return precautions to the ED. Patient grateful, verbalized understanding and agreed with plan of discharge. [] Dragon Disclaimer Dragon Disclaimer This electronic medical record was generated, in whole or in part, using a voice recognition dictation system. Departure Departure: Impression: Primary Impression: Vaginal itching Additional Impression: Dysuria Disposition: 01 DC HOME SELF CARE/HOMELESS Condition: GOOD Referrals: PCP,NO (PCP) HILARIO DICKINSON MD Patient Instructions: Urinary Tract Infection Additional Instructions: Please read all the attached information. Please take antibiotics as prescribed. As discussed your lab analysis for yeast and/or bacterial vaginosis should result in 24 to 48 hours. You will be notified of the results and if treatment needs to be initiated as discussed. Please call your primary care/ MANAGER [employer]USTRIAL first thing in the morning to update on ED visit and see about the labs that were obtained 2 days ago and need for treatment as well. Please discussed the need for follow-up appointment this week as well. As discussed. Please come back to the emergency department immediately with new or concerning symptoms. Scripts Cephalexin (CEPHALEXIN) 500 Mg Capsule 1 CAP PO TID for UTI for 5 Days, #15 CAP Prov: SEAN GUAJARDO MD 09/17/20 Problem Qualifiers SEAN GUAJARDO MD Sep 17, 2020 19:44
[2020-09-17 20:10] LABS: BACTERIA,URINE FEW /HPF (0-FEW); BILIRUBIN,URINE NEG (NEG); CLARITY,URINE CLEAR; COLOR,URINE YELLOW; GLUCOSE,URINE NEG (NEG); NITRITE,URINE NEG (NEG); SQUAMOUS EPITHELIAL CELL,UR MOD /LPF; UROBILINOGEN,URINE 0.2 mg/dL (0.2 mg/dL)
[2020-09-17] MEDS ORDERED: CEPH500C PO (20:55)
[2020-09-17] MEDS ORDERED: CEPHALEXIN 250 MG CAPSULE PO ONE (21:00)
== END 2020-09-17 21:00 | disposition home or self-care (01) ==
LOC: ER 19:04
DX: O26.893 Other specified pregnancy related conditions, third trimester (principal); N89.8 Other specified noninflammatory disorders of vagina; R30.0 Dysuria; O99.333 Smoking (tobacco) complicating pregnancy, third trimester; Z3A.35 35 weeks gestation of pregnancy
CPT/HCPCS: 81001; 87086; 87480; 87510; 87660; 99283

== ENCOUNTER 2020-09-25 10:55 | Emergency (ER) | payer OTHER ==
[~2020-09-25] VITALS: Ht 165.1 cm; Wt 80.6 kg
[~2020-09-25 10:55] MED LIST changes: +CEPH500C PO
[2020-09-25 11:31] VITALS: BP 137/80
--- NOTE | 2020-09-25 11:36 | PHYS DOC ---
Past History Past Medical History: No Pertinent History Past Surgical History: No Surgical History Smoking: Less than 1pk/day Alcohol Use: None Drug Use: None Adult General Chief Complaint Chief Complaint: ABDOMINAL PAIN IN [facility] HPI Patient is a 20-year-old female who presents to the emergency room concerned that she may be in labor. Patient is 36 weeks gestation. She last saw her AUGER MILL OPERATOR 2 weeks ago and at that time was not dilated. She states that she woke up this morning and was having intermittent abdominal cramping. She called her OB who told her to hydrate and rest today. Patient states that the cramping has gotten worse. She is now having severe cramping every 10 minutes that lasts 60 seconds at a time. She has some clear liquid drainage but does not have any kind of gush of fluid or vaginal bleeding. Review of Systems Review of Systems Complete ROS is negative unless otherwise documented in [facility] Allergies Allergies Allergies Coded Allergies Type Severity Reaction Last Updated Verified No Known Drug Allergies 09/17/20 No Physical Exam Physical Exam General: Awake, alert, NAD. Well Nourished, well hydrated. Cooperative HEENT: Atraumatic, EOMI, PERRL, airway patent, moist oral mucosa Neck: Supple, trachea midline Respiratory: CTA bilaterally, normal effort, no wheezing/crackles CV: RRR, no murmur, cap refill <2 GI: Soft, gravid abdomen, nontender : Cervix fingertip and posterior MSK: No obvious deformities Skin: Warm, dry, intact Neuro: A&O x3, speech NL, sensory and motor grossly intact, no focal deficits Psych: Normal affect, normal mood, not suicidal or homicidal Current Patient Data Vital Signs Vital Signs Date Time Temp Pulse Resp B/P (MAP) Pulse Ox O2 Delivery O2 Flow Rate FiO2 09/25/20 11:31 91 16 137/80 (99) 99 Room Air 09/25/20 11:10 98.0 EKG EKG [] Radiology/Procedures Radiology/Procedures [] Heart Score C/O Chest Pain: N/A Risk Factors: Risk Factors: DM, Current or recent (<one month) smoker, HTN, HLP, family history of CAD, obesity. Risk Scores: Risk Factors: DM, Current or recent (<one month) smoker, HTN, HLP, family history of CAD, obesity. Course & Med Decision Making Course & Med Decision Making Pertinent Labs and Imaging studies reviewed. (See chart for details) Patient is a 20-year-old female who presents to the emergency room concerned that she may be in labor. She is having intermittent cramping every 10 minutes. Patient does not appear to be significantly dilated. She has not had rupture of membranes. She is well-appearing. heart tones are 144. We are unable to do toco here in the emergency room. Patient is supposed to deliver at [place]. Attempts were made to get a hold of her A[employer] MILL OPERATOR. [address] Ruiz. They will accept patient for labor check. Will start fluids per recommendations Dragon Disclaimer Dragon Disclaimer This electronic medical record was generated, in whole or in part, using a voice recognition dictation system. Departure Departure: Impression: Primary Impression: Uterine contractions at greater than 20 weeks of gestation Disposition: 02 DC/TRF OTHER SHORT TERM HOS Condition: STABLE Referrals: PCP,NO (PCP) YASHIRA ALCOCER MD Sep 25, 2020 11:36
[2020-09-25] MEDS ORDERED: IV NORMAL SALINE 1,000ML 1,000 ML IV ONE (12:00)
== END 2020-09-25 12:20 | disposition short-term general hospital (02) ==
LOC: ER 10:55
DX: O62.9 Abnormality of forces of labor, unspecified (principal); Z3A.20 20 weeks gestation of pregnancy; O99.332 Smoking (tobacco) complicating pregnancy, second trimester
CPT/HCPCS: 99285; J7030

== ENCOUNTER 2021-02-28 18:30 | Emergency (ER) | payer OTHER ==
[~2021-02-28] VITALS: Ht 165.1 cm; Wt 72.0 kg
[~2021-02-28 18:30] MED LIST changes: -DOXY100C2 PO; +DOXY100C3 PO
[2021-02-28] MEDS ORDERED: AMOX500C PO (19:16)
--- NOTE | 2021-02-28 19:17 | PHYS DOC ---
Past History Past Medical History: No Pertinent History Past Surgical History: No Surgical History Smoking: Less than 1pk/day Alcohol Use: None Drug Use: None Adult General Chief Complaint Chief Complaint: SORE THROAT HPI HPI Patient is a 20-year-old female who presents with a chief complaint of sore throat and mild headache over the last 2 days. States that headache is whole head, 4 out of 10, dull and achy in nature. States it started with a sore throat. Denies any recent traumas, travels, illnesses, chest pain, shortness of breath, abdominal pain, nausea, vomiting, diarrhea. Does endorse fevers at home to 101. States he is able to eat and drink without issue. States he is making urine and stool without issue. Review of Systems Review of Systems Review of systems otherwise unremarkable except noted in HPI Allergies Allergies Allergies Coded Allergies Type Severity Reaction Last Updated Verified tramadol Allergy Unknown 09/25/20 Yes Physical Exam Physical Exam Constitutional: Well developed, well nourished, no acute distress, non-toxic appearance. [] HENT: Normocephalic, atraumatic, bilateral external ears normal, oropharynx moist, oropharyngeal erythema and scant exudate with no edema Eyes: , conjunctiva normal, no discharge. [] Neck: Normal range of motion, no tenderness, supple, no stridor, left-sided cervical lymphadenopathy. [] Cardiovascular:Heart rate regular rhythm, no murmur [] Lungs & Thorax: Bilateral breath sounds clear to auscultation [] Abdomen: soft, no tenderness, no masses, no pulsatile masses. [] Skin: Warm, dry, no erythema, no rash. [] Neurologic: Alert and oriented X 3, no focal deficits noted. [] Psychologic: Affect normal, judgement normal, mood normal. [] EKG EKG [] Radiology/Procedures Radiology/Procedures [] Heart Score C/O Chest Pain: N/A Risk Factors: Risk Factors: DM, Current or recent (<one month) smoker, HTN, HLP, family history of CAD, obesity. Risk Scores: Risk Factors: DM, Current or recent (<one month) smoker, HTN, HLP, family history of CAD, obesity. Course & Med Decision Making Course & Med Decision Making Patient is a 20-year-old female who presents with a chief complaint of sore throat headache for couple days Vital signs notable for sinus tachycardia. Physical exam noted above. Centor criteria of 4 suggestive of strep pharyngitis. Started on antibiotics, given steroids, Tylenol and ibuprofen. Discussed all findings with patient. Advised on symptom treatment at home. Advised to take antibiotics as prescribed. Advised to follow-up in the morning with primary care physician. Gave strict return precautions to the ED. Patient grateful, verbalized understanding agree with plan of discharge. [] Dragon Disclaimer Dragon Disclaimer This electronic medical record was generated, in whole or in part, using a voice recognition dictation system. Departure Departure: Impression: Primary Impression: Strep pharyngitis Disposition: HOME / SELF CARE / HOMELESS Condition: GOOD Referrals: PCP,NORRIS (PCP) ADAN ESPARZA Patient Instructions: Strep Throat Additional Instructions: Thank you for coming into the emergency department tonight and allowing us to ta ke care of you. Please read the attached information to go back over things we discussed. Please continue the Tylenol and ibuprofen and cough drop/Cepacol lozenge regimen. Please take the antibiotics as prescribed. Please call your primary care physician first thing in the morning to update on your ED visit and set up a follow-up appointment as soon as possible. Please come back to the ED with new or concerning symptoms as discussed. Scripts Amoxicillin (AMOXICILLIN) 500 Mg Capsule 1 CAP PO BID for strep throat for 10 Days, #19 CAP Prov: SEAN GUAJARDO MD 02/28/21 SEAN GUAJARDO MD Feb 28, 2021 19:17
[2021-02-28] MEDS: IBUPROFEN 600 MG TABLET. PO ONE (19:34)
[2021-02-28] MEDS: AMOXICILLIN 250 MG CAPSULE PO ONE (19:35)
[2021-02-28] MEDS: ACETAMINOPHEN 500 MG TABLET PO ONE (19:35)
[2021-02-28] MEDS: DEXAMETHASONE 4 MG TABLET PO ONE (19:35)
[2021-02-28 19:50] VITALS: BP 146/97
== END 2021-02-28 19:50 | disposition home or self-care (01) ==
LOC: ER 18:30
DX: J02.0 Streptococcal pharyngitis (principal); F17.200 Nicotine dependence, unspecified, uncomplicated; Z88.5 Allergy status to narcotic agent
CPT/HCPCS: 99284; J8540

== ENCOUNTER 2021-03-21 09:43 | Emergency (ER) | payer OTHER ==
[~2021-03-21] VITALS: Ht 165.1 cm; Wt 72.0 kg
[~2021-03-21 09:43] MED LIST changes: +AMOX500C PO
[2021-03-21 09:47] VITALS: BP 122/81
--- NOTE | 2021-03-21 10:54 | PHYS DOC ---
Past History Past Medical History: No Pertinent History Past Surgical History: No Surgical History Smoking: Less than 1pk/day Alcohol Use: None Drug Use: None General Adult EDM: Chief Complaint: SORE THROAT HPI: HPI: 20-year-old female presents with report of continued sore throat for which she was seen on 02/28/2021. At that time she was thought to have strep pharyngitis and was started on amoxicillin. Patient also had received a dose of steroid which she reports significantly improved her symptoms. Patient reports no testing was performed. Patient reports pain is primarily on the right side. Denies any fever or chills. Denies known exposure to COVID-19. Patient denies COVID vaccination. Review of Systems: Review of Systems: Constitutional: Denies fever or chills Eyes: Denies redness or eye pain HENT: Denies nasal congestion; reports sore throat Respiratory: Denies cough or shortness of breath Cardiovascular: Denies chest pain or palpitations Musculoskeletal: Denies back pain or joint pain Integument: Denies rash or skin lesions Neurologic: Denies headache, focal weakness or sensory changes Complete systems were reviewed and found to be within normal limits, except as documented in this note. Current Medications: Current Meds: Current Medications Medications (Trade) Dose Ordered Sig/Woodrow Start Time Stop Time Status Last Admin Dose Admin Dexamethasone (Decadron) 10 mg 1X ONCE 03/21/21 10:15 03/21/21 10:16 DC Allergies: Allergies: Allergies Coded Allergies Type Severity Reaction Last Updated Verified tramadol Allergy Unknown 09/25/20 Yes Physical Exam: PE: Constitutional: Well developed, well nourished, no acute distress, non-toxic appearance HENT: Normocephalic, atraumatic, mild pharyngeal erythema without exudates, uvula midline Eyes: Conjunctiva normal, no discharge Neck: Normal range of motion, supple Lungs & Thorax: No respiratory distress, equal chest rise and fall Skin: Warm, dry, no erythema, no rash Extremities: No tenderness, ROM intact, no edema Neurologic: Alert and oriented X 3, no focal deficits noted Psychologic: Affect normal, judgment normal Current Patient Data: Vital Signs: Vital Signs Date Time Temp Pulse Resp B/P (MAP) Pulse Ox O2 Delivery O2 Flow Rate FiO2 03/21/21 09:47 98.0 67 16 122/81 (95) 99 Room Air EKG: EKG: [] Radiology/Procedures: Radiology/Procedures: [] Heart Score: C/O Chest Pain: N/A Course & Med Decision Making: Course & Med Decision Making Pertinent Lab studies reviewed. (See chart for details) Patient presents with report of sore throat which has been ongoing for the last week. Patient reports she had similar occurrence on 02/28/2021 for which she was prescribed amoxicillin. Patient does report completion of her antibiotic with some improvement however has since redeveloped the symptoms. Symptomatic treatment provided with oral dexamethasone. Patient advised to use ov [id number] allergen medications. Rapid strep negative. Covid testing pending. Patient stable for discharge with outpatient follow-up with PCP. Discussed findings and plan with patient, who acknowledges understanding and agreement. COVID-19 CRITERIA: The patient was evaluated during the global COVID-19 pandemic, and that diagnosis was suspected/considered upon their initial presentation. Their evaluation, treatment and testing was consistent with current guidelines for patients who present with complaints or symptoms that may be related to COVID-19. Seth Disclaimer: Seth Disclaimer: This electronic medical record was generated, in whole or in part, using a voice recognition dictation system. Departure Departure: Impression: Primary Impression: Sore throat Disposition: HOME / SELF CARE / HOMELESS Condition: STABLE Referrals: PCP,NORRIS (PCP) Patient Instructions: Sore Throat, [id number] Additional Instructions: Use over the counter medications including Ibuprofen and/or Tylenol as needed for pain. May also benefit from over the counter allergy medications. You have been tested for or diagnosed with COVID-19. It is an infection caused by a new type of coronavirus. COVID-19 will cause cold-like or mild flu symptoms in most. It can cause more severe symptoms like problems breathing in some. There is no treatment for COVID-19. The body will clear the infection over time. Self-care will help to ease discomfort. Steps to Take: Self-Care Rest as needed. Healthy habits may help you feel better. Steps include: Choose healthy foods including fruits and vegetables. Drink water throughout the day. Get plenty of sleep each night. If you smoke, try to quit. It may ease breathing. Avoid alcohol. Keep Others Healthy The virus can spread to others. Droplets are released every time you sneeze or cough. The droplets can get into the mouth, nose, or eyes of people near you and lead to infection. To lower the chances of spreading COVID-19 to others: Stay at home until your doctor has said it is safe to leave. If you tested positive this will mean staying isolated until both of the following are true: At least 7 days have passed since the start of illness. You are free of fever for at least 72 hours without the use of medicine. During this time: - Avoid public areas, events, or transportation. Do not return to work or school until your doctor has said it is safe to do so. - Call ahead if you need to go to a medical center. Let them know you may have COVID-19. It will help them guide you where to go. They may also ask you to wear a facemask when you come to the office. - If you call for emergency medical services, let them know you may have COVID-19. While at home: - Try to avoid close contact with others. Stay about 6 feet away. - If possible, spend most of your time in a separate room from others. - Use a face mask if you will be in close contact with others such as sharing a room or vehicle. - Have someone wipe down common surfaces in the home. Use household sequins spooler every day on areas like doorknobs, counters, or sinks. - Cough or sneeze into a tissue. Throw the tissue away right after use. If a tissue is not available, cough or sneeze into your elbow. - Wash your hands often. Wash them after sneezing or coughing. Use soap and water and wash for at least 20 seconds. Alcohol based hand delta system freight car cleaner can be used if soap and water is not available. - Do not prepare food for others. Avoid sharing personal items like forks, spoons, or toothbrushes. - Avoid close contact with pets while you are sick. There is no evidence of the virus passing to pets. This is a safety step until more is known about this virus. Isolation can be frustrating. Social interaction can help. Keep in touch with friends and family through phone and tech options. You can still interact with others in your home, just keep a safe distance of about 6 feet. Follow-up: Your doctors office will check in with you to see if there are any changes in your health. You may be asked to keep track of symptoms to share with them. They will also let you know when you are clear to be in public again. Problems to Look Out For: Contact your doctor if your recovery is not going as you expect. Get emergency care if you have problems such as: - Trouble breathing - Nonstop chest pain or pressure - Changes in awareness, confusion, or problems waking - Lips or face have bluish color - Worsening of symptoms If you think you have an emergency, call for emergency medical services right away. As taken from [facility] COVID-19 Assessment COVID-19 Patient Risks: Age 65 or older: No Sign of co-morbidity: No Exp to person + for COVID: No Exp to PUI: No Travel from affected area: No Lower respiratory symptoms: No Fever: No Other: Yes PPE Use: Full PPE with N95 mask or PAPR: Yes ADDISON MACHADO DO Mar 21, 2021 10:54
[2021-03-21] MEDS: DEXAMETHASONE 4 MG TABLET PO ONE (11:12)
--- NOTE | 2021-03-22 09:04 | NUR ---
IP: Patient notified of negative COVID19 test result. Verbalized understanding.
== END 2021-03-21 11:15 | disposition home or self-care (01) ==
LOC: ER 09:43
DX: J02.9 Acute pharyngitis, unspecified (principal); F17.200 Nicotine dependence, unspecified, uncomplicated; Z20.822 Contact with and (suspected) exposure to COVID-19; Z88.6 Allergy status to analgesic agent
CPT/HCPCS: 87070; 87880; 99283; C9803; J8540; U0003

== ENCOUNTER 2021-06-19 22:38 | Emergency (ER) | payer OTHER ==
[~2021-06-19] VITALS: Ht 165.1 cm; Wt 73.0 kg
[2021-06-19 22:38] VITALS: BP 160/90
[2021-06-19] MEDS ORDERED: CEPH500C PO (22:50)
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
[2021-06-19] MEDS ORDERED: BACITRACIN ZINC TOPICAL OINT PACKET. TP ONE (23:00)
[2021-06-19] MEDS ORDERED: CEPHALEXIN 250 MG CAPSULE PO ONE (23:00)
[2021-06-19] MEDS ORDERED: ACETAMINOPHEN 500 MG TABLET PO ONE (23:00)
== END 2021-06-19 23:09 | disposition home or self-care (01) ==
LOC: ER 22:38
DX: S51.812A Laceration without foreign body of left forearm, initial encounter (principal); F17.200 Nicotine dependence, unspecified, uncomplicated; Z88.6 Allergy status to analgesic agent; W26.0XXA Contact with knife, initial encounter; Y93.89 Activity, other specified; Y92.89 Other specified places as the place of occurrence of the external cause; Y99.8 Other external cause status
CPT/HCPCS: 99284

== ENCOUNTER 2021-11-08 12:24 | Emergency (ER) | payer OTHER ==
[~2021-11-08] VITALS: Ht 165.1 cm; Wt 73.0 kg
[2021-11-08 12:46] VITALS: BP 109/61
--- NOTE | 2021-11-08 13:02 | PHYS DOC ---
Past History Past Medical History: No Pertinent History Past Surgical History: No Surgical History Smoking: Less than 1pk/day Alcohol Use: Occasionally Drug Use: None General Adult EDM: Chief Complaint: PAIN ON URINATION HPI: HPI: Patient is a 21-year-old female who presents to the emergency department for vag inal itching, thin white vaginal discharge and urinary frequency and urgency that started 2 days ago. Patient denies dysuria, fevers, nausea, vomiting. Review of Systems: Review of Systems: Constitutional: See HPI GI: See HPI : See HPI Allergies: Allergies: Allergies Coded Allergies Type Severity Reaction Last Updated Verified tramadol Allergy Unknown 09/25/20 Yes Physical Exam: PE: Constitutional: Well developed, well nourished, no acute distress, non-toxic appearance. [] HENT: Normocephalic, atraumatic, bilateral external ears normal, oropharynx moist, no oral exudates, nose normal. [] Eyes: PERRL, EOMI, conjunctiva normal, no discharge. [] Neck: Normal range of motion no stridor Cardiovascular: Normal peripheral perfusion Lungs & Thorax: Normal work of breathing, no tachypnea Abdomen: Soft and flat Skin: Warm, dry, no erythema, no rash. [] Back: No tenderness, no CVA tenderness. [] Extremities: No tenderness, no cyanosis, no clubbing, ROM intact, no edema. [] Neurologic: Alert and oriented X 3, normal motor function, normal sensory function, no focal deficits noted. [] Psychologic: Affect normal, judgement normal, mood normal. [] Current Patient Data: Labs: Laboratory Tests Test 11/08/21 12:41 Urine Collection Type Unknown Urine Color Yellow Urine Clarity Clear Urine pH 6.5 Urine Specific [place] >=1.030 Urine Protein Neg Urine Glucose (UA) Neg mg/dL Urine Ketones (Stick) Neg mg/dL Urine Blood Mod Urine Nitrite Neg Urine Bilirubin Neg Urine Urobilinogen Dipstick 0.2 mg/dL Urine Leukocyte Esterase Neg Urine RBC 3-5 /HPF Urine WBC 1-4 /HPF Urine Squamous Epithelial Cells Many /LPF Urine Bacteria 0 /HPF Urine Mucus Slight /LPF Urine Test Negative Vital Signs: Vital Signs Date Time Temp Pulse Resp B/P (MAP) Pulse Ox O2 Delivery O2 Flow Rate FiO2 11/08/21 12:46 98.2 92 16 109/61 (77) 99 Room Air EKG: EKG: [] Radiology/Procedures: Radiology/Procedures: [] Heart Score: C/O Chest Pain: N/A Risk Factors: Risk Factors: DM, Current or recent (<one month) smoker, HTN, HLP, family history of CAD, obesity. Risk Scores: Score 0 - 3: 2.5% MACE over next 6 weeks - Discharge Home Score 4 - 6: 20.3% MACE over next 6 weeks - Admit for Clinical Observation Score 7 - 10: 72.7% MACE over next 6 weeks - Early Invasive Strategies Course & Med Decision Making: Course & Med Decision Making Pertinent Labs and Imaging studies reviewed. (See chart for details) [] Patient presents to the emergency department for vaginal discharge, itching and urinary frequency and urgency. She will be tested for urinary tract infection. I offered a pelvic exam with STI and wet prep testing. Patient is declining the pelvic exam and she states that she believes she has a urinary tract infection. Wet prep was ordered to test for BV and yeast. Prep was negative. Urinalysis was negative for bacteria or leukocytes and there are many squamous cells indicating contamination. Urine culture will be sent patient be notified of results. I discussed with patient all findings and diagnostic testing as well as the need to follow-up with PCP for further evaluation and treatment or return to the ER if any new or worsening symptoms. Strict return precautions were also discussed at length. Patient voiced understanding and agreement with the plan. Patient is hemodynamically stable at the time of disposition. Dragon Disclaimer: Dragon Disclaimer: This electronic medical record was generated, in whole or in part, using a voice recognition dictation system. Departure Departure: Impression: Primary Impression: Vaginitis Qualified Codes: N76.0 - Acute vaginitis Disposition: HOME / SELF CARE / HOMELESS Condition: GOOD Referrals: PCP,NO (PCP) Patient Instructions: Urinary Frequency Additional Instructions: You are seen in the emergency department today for vaginal discharge and itching. You were negative for bacterial vaginosis and yeast. You did not have a urinary tract infection. If you desire comprehensive STI testing, please fol low up with your local health department. However, a urine culture will be sent and if it is positive for UTI from the culture you will receive a phone call treatment. Increase your fluids and avoid bladder irritants like caffeine, sugary beverages and alcohol. You are being discharged with a cream to apply to help with your itching. Follow-up with your primary care provider tomorrow regarding your ER visit. Return to the emergency department if you develop abdominal pain, intractable nausea vomiting, high fevers refractory to treatment. Scripts Miconazole Nitrate (MONISTAT 3) 15 Gm Crm.pf.mari 1 APPFUL VG QHS for vaginitis for 7 Days, #15 GM 0 Refills Prov: WILLOW GIL APRN 11/08/21 WILLOW GIL APRN November 08, 2021 13:02
[2021-11-08 13:19] LABS: BACTERIA,URINE 0 /HPF (0-FEW); CLARITY,URINE CLEAR; COLOR,URINE YELLOW; GLUCOSE,URINE NEG (NEG); NITRITE,URINE NEG (NEG); SQUAMOUS EPITHELIAL CELL,UR MANY /LPF; U PREG PATIENT NEGATIVE (NEG); UROBILINOGEN,URINE 0.2 mg/dL (0.2 mg/dL)
[2021-11-08] MEDS ORDERED: MICO15CR7 VG (13:54)
== END 2021-11-08 14:04 | disposition home or self-care (01) ==
LOC: ER 12:24
DX: N76.0 Acute vaginitis (principal); F17.200 Nicotine dependence, unspecified, uncomplicated; Z88.8 Allergy status to other drugs, medicaments and biological substances
CPT/HCPCS: 81001; 81025; 99283; Q0111